=== PATIENT | male | born 1975 | race Caucasian/White ===

== ENCOUNTER 2017-09-01 11:01 | Inpatient (IN) | payer MEDICARE, OTHER ==
[2017-09-01] MEDS ORDERED: ALBUTEROL SULFATE 2.5 MG/0.5 ML VIAL.NEB IH ONE ×2 (11:27→11:29)
[2017-09-01 11:41] LABS: Hematocrit 42.5 % (42.0-52.0); Hemoglobin 14.9 gm/dL (13.5-18.0); Mean Cell Volume 90.6 fl (78-100); Mean Corpuscular Hemoglobin 31.8 pg (27-31); Mean Corpuscular Hgb Conc 35.1 g/dl (32-36); Mean Platelet Volume 10.4 fl (6.0-9.5); Neutrophil # 6.9 K/mm3 (1.3-6.0); Neutrophil % 67.3 % (42-75.0); Platelet Count 174 K/mm3 (150-450); Red Blood Count 4.69 M/mm3 (4.7-6.0); Red Cell Distribution Width 12.4 % (11.5-14.0); White Blood Count 10.2 K/mm3 (4.0-10.5)
[2017-09-01 11:56] LABS: Albumin * 3.9 gm/dl (3.4-5.0); Anion Gap 18.2 mmol/L (6.8-13.8); BUN/Creatinine Ratio 12.4 (9.0-21.6); Bilirubin, Total 0.4 mg/dL (0.0-1.1); Ca. Corrected For Albumin 8.5 mg/dL (8.4-10.2); Calcium * 8.7 mg/dL (7.9-10.9); Carbon Dioxide 17.6 mmol/L (24-32.6); Potassium 3.8 mmol/L (3.4-4.6); Total Protein 7.9 gm/dL (6.2-8.2)
--- NOTE | 2017-09-01 11:56 | ERNOTE ---
Lower Extremity HPI - Narrative Date of Service: 09/01/17 - General Lower Extremities Pain: leg: right Time Seen by Provider: 09/01/17 11:20 Source: patient Exam Limitations: no limitations - Immun/Allergies/Home Medications Immunizations: IMMUNIZATION HX Immunizations Up to Date Yes History of Influenza Vaccine Yes Allergies/Adverse Reactions: Allergies Allergy/AdvReac Type Severity Reaction Status Date / Time acetaminophen Allergy Verified 09/01/17 11:19 [From Tylenol-Codeine #3] codeine phosphate Allergy Verified 09/01/17 11:19 [From Tylenol-Codeine #3] divalproex sodium Allergy Verified 09/01/17 11:19 [From Depakote] varenicline tartrate Allergy Verified 09/01/17 11:19 [From Chantix] Home Medications: HOME MEDICATIONS Aspirin 81 mg PO DAILY 09/19/15 [Last Taken Unknown] Ibuprofen [Motrin] 800 mg PO TID PRN 09/19/15 [Last Taken Unknown] Lansoprazole [Prevacid] 30 mg PO DAILY 09/19/15 [Last Taken Unknown] Lisinopril [Zestril] 2.5 mg PO DAILY 09/19/15 [Last Taken Unknown] Lovastatin 40 mg PO BID 09/19/15 [Last Taken Unknown] QUEtiapine FUMARATE [Seroquel] 300 mg PO BID 09/19/15 [Last Taken Unknown] acetaZOLAMIDE [Acetazolamide (Diamox)] 250 mg PO BID 09/19/15 [Last Taken Unknown] metFORMIN HCL [Glucophage Xr] 500 mg PO BID 09/19/15 [Last Taken Unknown] - History of Present Illness Narrative: Pt. comes in with c/o LLE pain for a week. Pt. also has c/o SOB, Cough, rhinorrhea, sore throat, but denies any NVD, fever, alleviating factors, aggravating factors, or prehospital treatment. 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 Review of Systems - Review of Systems Constitutional: Present: chills, fatigue, malaise EYE: Present: no symptoms reported ENT: Present: nose congestion, nasal drainage, sore throat Respiratory: Present: shortness of breath, cough, orthopnea, wheezing Cardiology: Present: no symptoms reported. Absent: chest pain, palpitations, edema Gastrointestinal/Abdominal: Present: no symptoms reported Genitourinary: Present: no symptoms reported. Absent: frequency, decreased urinary output Musculoskeletal: Present: muscle pain. Absent: back pain, joint pain Skin: Present: no symptoms reported. Absent: rash, change in hair/nails Neurological: Present: no symptoms reported. Absent: anxiety, headache, dizziness/light-headedness, weakness, numbness, tingling All Other Systems: All systems neg except as marked - Patient's Past Medical History Patient History - Medical: Bipolar, Diabetes Type 2 Patient History - Cardiac/Respiratory: Deep Vein Thrombosis, Hypertension, Pulmonary Embolism Patient History - Cancer: No Hx of Cancer Patient History - Surgical Procedures: Cataracts Patient History - Other: None - Social History Living Situations: home Abuse History: No History of abuse Psych History: Hx of Anxiety Alcohol Use: none Drug Use: none - Immunizations Immunizations Up to Date: Yes History of Influenza Vaccine: Yes Physical Exam - Physical Exam General Appearance: Present: wd/wn, alert, no apparent distress Head Exam: Present: normal inspection, no evidence of injury Eye Exam: Normal inspection: bilateral, PERRL: bilateral, EOMI: bilateral Ears, Nose, Throat: Present: nasal congestion, pharyngeal erythema, pharyngeal swelling Neck: Present: normal inspection, nontender. Absent: lymphadenopathy (R), lymphadenopathy (L) Respiratory: Present: no accessory muscle use, chest nontender, rales, rhonchi, wheezing - throughout Cardiovascular/Chest: Present: no murmur, normal peripheral pulses, tachycardia Extremity Exam: Present: normal range of motion, no edema, calf tenderness Neurological Exam: Present: alert, oriented, normal mood/affect, no motor/ sensory deficits Skin Exam: Present: normal color, warm/dry. Absent: pallor, skin rash ED Progress - Date and Time Seen: Date and Time: 09/01/17 12:23 Am concerned with pt. SOB and positive DVT that he may likely have a PE so will get CT of his chest. 09/01/17 14:[address] Durand and as pt. has central vein blood clot and proximal DVT feel taht pt. needs admit for acute anticoagulation and close monitoring. - Results and Orders Patient's Lab Results:: I have reviewed the patient's lab results. - Vital Signs Patient's Vital Signs:: I have reviewed the patient's vital signs. Vital Signs: Vital Signs 09/01/17 11:11 Temperature 36.4 C L Pulse Rate 116 H Respiratory 12 Rate Blood Pressure 131/81 O2 Sat by Pulse 95 Oximetry - CT/Ultrasound CT/Ultrasound Narrative: US with DVT in prox femoral vein throughout LLE. CT chest with multiple PEs most prominent in the B main pulmonary arteries with evidence of R heart strain. - Progress/Reassessment Chief Complaint: Lower Extremity Pain/ Injury Progress:: Unchanged Departure Clinical Impression: DVT (deep venous thrombosis) Qualifiers: DVT location: lower extremity Affected thrombotic vein of extremity: femoral Chronicity: acute Laterality: left Qualified Code(s): I82.412 - Acute embolism and thrombosis of left femoral vein Pulmonary embolism Qualifiers: Pulmonary embolism type: other Chronicity: acute Acute cor pulmonale presence: with acute cor pulmonale Qualified Code(s): I26.09 - Other pulmonary embolism with acute cor pulmonale - Departure Disposition: [facility] Condition: Serious Referrals: Meri Lo ARNP [Primary Care Provider] -
[2017-09-01] MEDS ORDERED: HEPARIN SODIUM,PORCINE 5,000 UNITS/ML VIAL IV ONE (13:42)
[2017-09-01] MEDS ORDERED: HEPARIN SODIUM,PORCINE 5,000 UNITS/ML VIAL ONE (14:04)
[2017-09-01] MEDS ORDERED: HEPARIN SODIUM,PORCINE/D5W 25,000 UNITS/500 ML BAG IV ONE (14:05)
[2017-09-01 14:08] LABS: Prothrombin Time (Patient) 10.2 Seconds (9.0-11.0)
[2017-09-01 14:10] LABS: INR 1.02 INR (0.90-1.10); Partial Thrombolplastin Time 28.9 Seconds (24-32)
[2017-09-01] MEDS: HEPARIN SODIUM,PORCINE/D5W 25,000 UNITS/500 ML BAG IV PRN (14:23)
[2017-09-01] MEDS ORDERED: NICOTINE 14 MG PATC TD SCH (15:45)
[2017-09-01] MEDS: WARFARIN SODIUM 5 MG TABLET PO SCH (17:17)
[2017-09-01] MEDS: INSULIN LISPRO 100 UNITS/ML VIAL SC SCH (17:17)
[2017-09-01] MEDS ORDERED: FLU VACC QS2017-18(6MOS UP)/PF 60 MCG/0.5 ML SYRINGE IM ONE (19:00)
[2017-09-01] MEDS: acetaZOLAMIDE 250 MG TABLET PO SCH (21:25)
[2017-09-01] MEDS: ROSUVASTATIN CALCIUM 10 MG TABLET PO SCH (21:25)
[2017-09-01] MEDS: QUEtiapine FUMARATE 100 MG TABLET PO SCH (21:26)
--- NOTE | 2017-09-01 23:13 | HP ---
Chief Complaint - Chief Complaint Date of Service: 09/01/17 Time of Service: 23:04 Chief Complaint: Left leg pain, shortness of breath History of Present Illness: 42 years old male adm to the hospital with reports of left leg pain and increased shortness of breath x 3 days. PMH significant for PE, DVT, hypertension, smoker and bipolar. pt stated he noticed his left leg was getting swollen, warm to touch and increasingly painful with and without ambulating. He was using Coumadin a year ago for DVT and PE, but no longer taking. He denies chest pain, diaphoresis, palpitation, fever, chills and cough. In ER venous duplex : + DVT left leg and CTA chest _ Multiple PE bilateral lungs. He was initiated on heparin drip will continue and bridge with Coumadin.Plan of care discussed with pt he verbalized understanding and agrees. - Patient's Past Medical History Patient History - Medical: Bipolar, Diabetes Type 2 Patient History - Cardiac/Respiratory: Deep Vein Thrombosis, Hypertension, Pulmonary Embolism Patient History - Cancer: No Hx of Cancer Patient History - Surgical Procedures: Cataracts Patient History - Other: None - Family History Mother Family History - Medical: History Unknown Family History - Cardiac/Respiratory: History Unknown Family History - Cancer: History Unknown Father Family History - Medical: History Unknown Family History - Cardiac/Respiratory: History Unknown Family History - Cancer: Chemotherapy - Social History Living Situations: home Abuse History: No History of abuse Psych History: Hx of Anxiety Smoking Status: Current every day smoker Have you smoked in the past 12 months: Yes Do you dip or chew tobacco: No Patient requests Smoking Cessation Consult: No Initiate information on Smoking Cessation: Yes Alcohol Use: none Drug Use: none - Immunizations Immunizations Up to Date: Yes History of Influenza Vaccine: Yes Review Of Systems (GEN) - Review of Systems Generalized/Overall Review: Present: No Symptoms Reported EENTM: Present: No Symptoms Reported Respiratory: Present: Shortness of Breath Cardiac: Present: No Symptoms Reported Abdominal: Present: No Symptoms Reported Genitourinary: Present: No Symptoms Reported Musculoskeletal: Present: Other - left calf pain Neurological: Present: No Symptoms Reported Skin: Present: No Symptoms Reported Endocrine: Present: No Symptoms Reported Immunizations: IMMUNIZATION HX Immunizations Up to Date Yes History of Influenza Vaccine Yes Allergies/Adverse Reactions: Allergies Allergy/AdvReac Type Severity Reaction Status Date / Time acetaminophen Allergy Verified 09/01/17 15:25 [From Tylenol-Codeine #3] codeine phosphate Allergy Verified 09/01/17 15:25 [From Tylenol-Codeine #3] divalproex sodium Allergy Verified 09/01/17 15:25 [From Depakote] varenicline tartrate Allergy Verified 09/01/17 15:25 [From Chantix] Home Medications: HOME MEDICATIONS Aspirin 81 mg PO DAILY 09/19/15 [Last Taken Unknown] Ibuprofen [Motrin] 800 mg PO TID PRN 09/19/15 [Last Taken Unknown] Lansoprazole [Prevacid] 30 mg PO DAILY 09/19/15 [Last Taken Unknown] Lisinopril [Zestril] 2.5 mg PO DAILY 09/19/15 [Last Taken Unknown] Lovastatin 40 mg PO BID 09/19/15 [Last Taken Unknown] QUEtiapine FUMARATE [Seroquel] 300 mg PO BID 09/19/15 [Last Taken Unknown] acetaZOLAMIDE [Acetazolamide (Diamox)] 250 mg PO BID 09/19/15 [Last Taken Unknown] metFORMIN HCL [Glucophage Xr] 500 mg PO BID 09/19/15 [Last Taken Unknown] Exam - Exam Vital Signs: Vital Signs - Last Taken Temp 36.6 C 09/01/17 18:51 Pulse 92 09/01/17 18:51 Resp 18 09/01/17 18:51 BP 100/58 09/01/17 18:51 Pulse Ox 93 09/01/17 18:51 Constitutional: Present: Alert, Oriented x3, Cooperative, No distress ENT Exam: Present: hearing grossly normal Eye Exam: bilateral eye: normal inspection Neck: Present: full range of motion Back Exam: Present: normal inspection Respiratory: Present: normal breath sounds, no respiratory distress, decreased breath sounds Cardiovascular/Chest: Present: normal peripheral pulses, regular rate, rhythm Peripheral Pulses: dorsalis-pedis (R): 3+, dorsalis-pedis (L): 3+ Abdomen: Present: Normal bowel sounds, soft, nontender, nondistended /Rectal: Present: Exam deferred Extremity: Present: normal range of motion, no pedal edema, normal capillary refill, calf tenderness - left, lower extremity edema - left Skin Exam: Present: normal color, warm/dry, no cyanosis Neurologic: Present: oriented x 3 Appearance: Present: appropriate appearance Eye contact: Present: cooperative, good eye contact Diagnostic Studies: Abnormal Lab Results 09/01/17 Range/Units 21:43 PTT (Ari) 46.0 H D (24-32) Seconds Laboratory Results WBC 10.2 K/mm3 (4.0-10.5) 09/01/17 11:39 RBC 4.69 M/mm3 (4.7-6.0) L 09/01/17 11:39 Hgb 14.9 gm/dL (13.5-18.0) 09/01/17 11:39 Hct 42.5 % (42.0-52.0) 09/01/17 11:39 MCV 90.6 fl (78-100) 09/01/17 11:39 MCH 31.8 pg (27-31) H 09/01/17 11:39 MCHC 35.1 g/dl (32-36) 09/01/17 11:39 RDW 12.4 % (11.5-14.0) 09/01/17 11:39 Plt Count 174 K/mm3 (150-450) 09/01/17 11:39 MPV 10.4 fl (6.0-9.5) H 09/01/17 11:39 Immature Gran % (Auto) 0.60 % (0.001-0.429) H 09/01/17 11:39 Immature Gran # (Auto) 0.06 K/mm3 (0.000-0.0310) H 09/01/17 11:39 Neutrophils % 67.3 % (42-75.0) 09/01/17 11:39 Lymphocytes % 25.0 % (20-51) 09/01/17 11:39 Monocytes % 5.6 % (0.0-9) 09/01/17 11:39 Eosinophils % 0.9 % (0.0-3.0) 09/01/17 11:39 Basophils % 0.6 % (0.0-1.0) 09/01/17 11:39 Nucleated RBC % 0.0 k/mm3 (0-1) 09/01/17 11:39 Neutrophils # 6.9 K/mm3 (1.3-6.0) H 09/01/17 11:39 Lymphocytes # 2.5 k/mm3 (1.5-3.5) 09/01/17 11:39 Monocytes # 0.6 k/mm3 (0.0-1.0) 09/01/17 11:39 Eosinophils # 0.1 k/mm3 (0.0-0.7) 09/01/17 11:39 Absolute Basophils 0.1 k/mm3 (0.0-0.1) 09/01/17 11:39 PT 10.2 Seconds (9.0-11.0) 09/01/17 11:39 INR (Anticoag Therapy) 1.02 INR (0.90-1.10) 09/01/17 11:39 PTT (Ari) 46.0 Seconds (24-32) H D 09/01/17 21:43 D-Dimer 4.16 mg/L (0.19-0.49) H 09/01/17 11:39 Sodium 139 mmol/L (132-142) 09/01/17 11:39 Plasma Sodium 139 mmol/L (130-142) 09/01/17 11:39 Potassium 3.8 mmol/L (3.4-4.6) 09/01/17 11:39 Chloride 107 mmol/L (97-106) H 09/01/17 11:39 Carbon Dioxide 17.6 mmol/L (24-32.6) L 09/01/17 11:39 Anion Gap 18.2 mmol/L (6.8-13.8) H 09/01/17 11:39 BUN 11 mg/dL (6-23) 09/01/17 11:39 Creatinine 0.89 mg/dL (0.4-1.4) 09/01/17 11:39 Est GFR (Non-Af Amer) 101 mL/min (60-130) 09/01/17 11:39 BUN/Creatinine Ratio 12.4 (9.0-21.6) 09/01/17 11:39 Random Glucose 108 mg/dL (70-110) 09/01/17 11:39 Calcium 8.7 mg/dL (7.9-10.9) 09/01/17 11:39 Calcium Adj for Albumin 8.5 mg/dL (8.4-10.2) 09/01/17 11:39 Total Bilirubin 0.4 mg/dL (0.0-1.1) 09/01/17 11:39 AST 19 U/L (0-48) 09/01/17 11:39 ALT 39 U/L (19-67) 09/01/17 11:39 Alkaline Phosphatase 123 U/L (50-170) 09/01/17 11:39 Total Protein 7.9 gm/dL (6.2-8.2) 09/01/17 11:39 Albumin 3.9 gm/dl (3.4-5.0) 09/01/17 11:39 Influenza Type A Ag Negative (NEGATIVE) 09/01/17 12:10 Influenza Type B Ag Negative (NEGATIVE) 09/01/17 12:10 Group A Strep Rapid Negative (NEGATIVE) 09/01/17 12:10 Venous doppler: Extensive DVT left lower extremity venous system extending into the visualized common femoral vein. seen on CTA chest: + acute PE multiple acute PE bilateral lungs. Assessment/Plan - Narrative Narrative: DVT Pt report of leg pain, he has hx of DVT On adm D-Dimer 4.16 Venous doppler: Extensive DVT left lower extremity venous system extending into the visualized common femoral vein. Heparin drip in progress and bridge with Coumadin Continue monitoring PTT Pulmonary Embolism seen on CTA chest: + acute PE multiple acute PE bilateral lungs. pt aslo + DVT left femoral vein On adm D-Dimer 4.16, continue with heparin drip and bridge with Coumadin Diabetes- stable on adm BG 108 Accu-check AC +HS and sliding scale Consistent carb diet Hypertension- stable On adm BP 100/58 May continue with home medications Monitor VS q shift and PRN as indicated Bipolar- stable Continue with home medication Code status: Full GI ppx: pepcid VTE ppx: therapeutic Coumadin and heparin Time: 45 minutes Case discussed and managed with Dr Durand - Assessment/Plan (1) DVT (deep venous thrombosis) Problem: Acute Qualifiers: DVT location: lower extremity Affected thrombotic vein of extremity: femoral Chronicity: acute Laterality: left Qualified Code(s): I82.412 - Acute embolism and thrombosis of left femoral vein (2) Diabetes Problem: Chronic (3) Hypertension Problem: Chronic (4) Pulmonary embolism Problem: Acute Qualifiers: Pulmonary embolism type: other Chronicity: acute Acute cor pulmonale presence: with acute cor pulmonale Qualified Code(s): I26.09 - Other pulmonary embolism with acute cor pulmonale
[2017-09-02 06:32] LABS: Prothrombin Time (Patient) 11.1 Seconds (9.0-11.0)
[2017-09-02 06:38] LABS: INR 1.11 INR (0.90-1.10)
[2017-09-02] MEDS: INSULIN LISPRO 100 UNITS/ML VIAL SC SCH (07:13)
[2017-09-02] MEDS: PANTOPRAZOLE SODIUM 40 MG TABLET.EC PO SCH (07:14)
[2017-09-02] MEDS: HEPARIN SODIUM,PORCINE/D5W 25,000 UNITS/500 ML BAG IV PRN (08:19)
[2017-09-02] MEDS: acetaZOLAMIDE 250 MG TABLET PO SCH ×2 (08:46→20:21)
[2017-09-02] MEDS: ASPIRIN 81 MG TAB.CHEW PO SCH (08:46)
[2017-09-02] MEDS: LISINOPRIL 2.5 MG TABLET PO SCH (08:47)
[2017-09-02] MEDS: QUEtiapine FUMARATE 100 MG TABLET PO SCH ×2 (08:47→20:22)
[2017-09-02] MEDS: NICOTINE 14 MG PATC TD SCH (12:03)
[2017-09-02] MEDS: WARFARIN SODIUM 5 MG TABLET PO SCH (16:32)
[2017-09-02] MEDS: ROSUVASTATIN CALCIUM 10 MG TABLET PO SCH (20:21)
[2017-09-03] MEDS: HEPARIN SODIUM,PORCINE/D5W 25,000 UNITS/500 ML BAG IV PRN ×2 (01:04→19:09)
[2017-09-03] MEDS ORDERED: ACETAMINOPHEN 500 MG TABLET PO PRN (03:25)
[2017-09-03] MEDS: PANTOPRAZOLE SODIUM 40 MG TABLET.EC PO SCH (06:19)
--- NOTE | 2017-09-03 06:26 | PN ---
Subjective - Date and Time Seen Date: 09/03/17 Time: 06:22 Subjective Narrative: patient seen today very sleepy, no reports of shortness of breath, cough, chest pain, fever or palpitation. Objective - Review of Systems Generalized/Overall Review: Reports: No Symptoms Reported EENTM: Reports: No Symptoms Reported Respiratory: Reports: No Symptoms Reported Cardiac: Reports: No Symptoms Reported Abdominal: Reports: No Symptoms Reported Genitourinary Symptoms: Reports: No Symptoms Reported Musculoskeletal Complaints: Reports: No Symptoms Reported Neurological: Reports: No Symptoms Reported - Vitals Vitals: Last Vital Signs Temp 36.6 C 09/03/17 03:10 Pulse 83 09/03/17 03:10 Resp 20 09/03/17 03:10 BP 115/72 09/03/17 03:10 Pulse Ox 95 09/03/17 03:10 - Abnormal Lab Findings Abnormal Lab Findings: Abnormal Lab Results 09/02/17 Range/Units 05:30 PT 11.1 H (9.0-11.0) Seconds INR (Anticoag Therapy) 1.11 H (0.90-1.10) INR - Exam Constitutional: Present: Alert, Oriented x3, Cooperative, No distress ENT Exam: Present: hearing grossly normal Neck: Present: full range of motion Respiratory: Present: chest non-tender, normal breath sounds, no respiratory distress Cardiovascular/Chest: Present: normal peripheral pulses, regular rate, rhythm, no chest tenderness Abdomen: Present: Normal bowel sounds, soft, nontender, nondistended /Rectal: Present: Exam deferred Extremity: Present: normal range of motion, no pedal edema, calf tenderness Skin Exam: Present: normal color, warm/dry Neurologic: Present: oriented x 3 Appearance: Present: appropriate appearance Eye contact: Present: cooperative Thoughts: Present: normal thought pattern Assessment/Plan Plan Narrative: DVT On adm Pt report of leg pain, he has hx of DVT On adm D-Dimer 4.16 Venous doppler: Extensive DVT left lower extremity venous system extending into the visualized common femoral vein. Heparin drip in progress and bridge with Coumadin Continue monitoring PTT, INR still not therapeutic. Plan to DC heparin when Coumadin therapeutic. Pulmonary Embolism seen on CTA chest: + acute PE multiple acute PE bilateral lungs. pt aslo + DVT left femoral vein Plan same as #1 Diabetes- stable Accu-check AC +HS and sliding scale Consistent carb diet Hypertension- stable BP 115/72 Continue with home medications Monitor VS q shift and PRN as indicated Bipolar- stable Continue with home medication Code status: Full GI ppx: pepcid VTE ppx: therapeutic Coumadin and heparin Time: 20 minutes Case discussed and managed with Dr Durand - Problems/Diagnosis (1) DVT (deep venous thrombosis) Problem: Acute Qualifiers: DVT location: lower extremity Affected thrombotic vein of extremity: femoral Chronicity: acute Laterality: left Qualified Code(s): I82.412 - Acute embolism and thrombosis of left femoral vein (2) Diabetes Problem: Chronic (3) Hypertension Problem: Chronic (4) Pulmonary embolism Problem: Acute Qualifiers: Pulmonary embolism type: other Chronicity: acute Acute cor pulmonale presence: with acute cor pulmonale Qualified Code(s): I26.09 - Other pulmonary embolism with acute cor pulmonale
[2017-09-03 06:30] LABS: Prothrombin Time (Patient) 11.5 Seconds (9.0-11.0)
[2017-09-03 06:38] LABS: INR 1.15 INR (0.90-1.10); Partial Thrombolplastin Time 47.6 Seconds (24-32)
[2017-09-03] MEDS: QUEtiapine FUMARATE 100 MG TABLET PO SCH ×2 (08:45→20:19)
[2017-09-03] MEDS: acetaZOLAMIDE 250 MG TABLET PO SCH ×2 (08:46→20:19)
[2017-09-03] MEDS: ASPIRIN 81 MG TAB.CHEW PO SCH (08:46)
[2017-09-03] MEDS: LISINOPRIL 2.5 MG TABLET PO SCH (08:46)
[2017-09-03] MEDS: NICOTINE 14 MG PATC TD SCH (08:47)
[2017-09-03] MEDS ORDERED: LORazepam 2 MG/ML DISP.SYRIN IV PRN (12:38)
[2017-09-03] MEDS ORDERED: LORazepam 1 MG TABLET PO PRN (12:38)
[2017-09-03] MEDS ORDERED: NICOTINE 21 MG PATC TD SCH (12:45)
[2017-09-03] MEDS ORDERED: WARFARIN SODIUM 7.5 MG TABLET PO SCH (17:00)
[2017-09-03] MEDS: ROSUVASTATIN CALCIUM 10 MG TABLET PO SCH (20:18)
[2017-09-04] MEDS: PANTOPRAZOLE SODIUM 40 MG TABLET.EC PO SCH (07:23)
[2017-09-04] MEDS ORDERED: QUEtiapine FUMARATE 25 MG TABLET PO PRN (09:28)
[2017-09-04] MEDS ORDERED: LORazepam 0.5 MG TABLET PO PRN (09:28)
[2017-09-04] MEDS ORDERED: METHOCARBAMOL 500 MG TABLET PO PRN (09:28)
--- NOTE | 2017-09-04 09:29 | DS ---
(1) DVT (deep venous thrombosis) Problem: Acute Qualifiers: DVT location: lower extremity Affected thrombotic vein of extremity: femoral Chronicity: acute Laterality: left Qualified Code(s): I82.412 - Acute embolism and thrombosis of left femoral vein (2) Pulmonary embolism Problem: Acute Qualifiers: Pulmonary embolism type: other Chronicity: acute Acute cor pulmonale presence: with acute cor pulmonale Qualified Code(s): I26.09 - Other pulmonary embolism with acute cor pulmonale Description of Stay: ADMISSION DATE: 09/01/2017 DISCHARGE DATE: 09/04/2017 ADMISSION HPI by LAURENT Villanueva: 42 years old male adm to the hospital with reports of left leg pain and increased shortness of breath x 3 days. PMH significant for PE, DVT, hypertension, smoker and bipolar. pt stated he noticed his left leg was getting swollen, warm to touch and increasingly painful with and without ambulating. He was using Coumadin a year ago for DVT and PE, but no longer taking. He denies chest pain, diaphoresis, palpitation, fever, chills and cough. In ER venous duplex : + DVT left leg and CTA chest _ Multiple PE bilateral lungs. He was initiated on heparin drip will continue and bridge with Coumadin. Plan of care discussed with pt he verbalized understanding and agrees. HOSPITAL COURSE: The patient presented to the emergency department with complaints of left leg pain and increased shortness of breath. He was subsequently found to have extensive left lower extremity DVT and bilateral pulmonary emboli. The patient was started on a heparin drip for bridging plus Coumadin daily. The patient states he has a history of multiple DVTs and PEs in the past. Is unclear whether or not he has had a hypercoagulable workup completed in the past or not but we are unable to completely went this time as the patient was restarted on a heparin drip. Given the patients history of multiple VTEs, the patient will need to be on lifelong anticoagulation. After our piano case maker were available on 09/04/2017, we checked with the patients pharmacy and his insurance and he will be able to get Xarelto for a low monthly cost and thus he was switched to Xarelto prior to discharge. The patient was discharged in stable condition and instructed to follow-up with his primary care physician within one week. FOLLOW-UP APPOINTMENTS: -Follow-up with PCP, Meri Lo, within 1 week NEW OR CHANGED MEDICATIONS: -Xarelto 15mg PO BID X 21 days and then transition to 20mg daily DISCONTINUED MEDICATIONS: None RADIOLOGY REPORTS: Left lower extremity venous duplex ultrasound on 09/01/2017 showed: Extensive DVT. Exam shows thrombus throughout the left lower extremity venous system extending into the visualized common femoral. Chest CT angiogram on 09/01/2017 showed: Pulmonary arteries: Opacification of the pulmonary arterial branches adequate. The breath hold is adequate. There is streaky artifact from contrast material within the superior vena cava, which affects the adjacent pulmonary arteries. Patient has multiple central filling defects of the bilateral pulmonary arteries , affecting the distal right and left pulmonary artery, extending into the lobar and segmental branches on both sides, consistent with extensive multiple acute pulmonary emboli. The main pulmonary artery and the bifurcation areas spared. Axial images suggests relative dilation of the right ventricle, which can be a sign of right heart strain. Mild cardiac enlargement is noted. Aorta: Thoracic aorta unremarkable without acute findings. Multiple artifacts related to cardiac motion and streak artifact from contrast and the adjacent superior vena cava noted. Mediastinum: No mediastinal mass or lymphadenopathy noted. Heart: There is mild cardiomegaly, with asymmetric right ventricular dilation suggestive of right cardiac strain. There is trace amount of pericardial effusion. Lung parenchyma: The lung parenchyma demonstrates no focal consolidation. Mild bilateral dependent atelectasis noted. Central airways: The trachea and bronchi grossly patent. Pleural spaces: No pneumothorax or pleural effusions present. Bones: Bones are grossly intact. Chest wall/axillae: Bilateral gynecomastia noted. No axillary lymphadenopathy. Upper abdomen: There is hepatomegaly with decreased attenuation of the liver parenchyma suggestive of fatty liver infiltration. Somewhat distended appearance of the gallbladder without definite calcified gallstone. IMPRESSION: 1.Positive for acute pulmonary embolism. Multiple acute pulmonary emboli suggested within the bilateral lungs as discussed above. There is also CT signs of right heart strain. 2.Negative for acute thoracic aortic finding. Procedures Performed: none Discharge Disposition: Home self care Disposition: Home self-care Condition: Stable Discharge Activity: Activity as tolerated Discharge Diet: General/regular food Referrals: Meri Lo ARNP [Primary Care Provider] - Problem Oriented Discharge Instructions to Patient/Family: Pulmonary Embolism, Deep Vein Thrombosis Additional Patient Instructions (free text): Follow-up with PCPMeri, within 1 week 11/6 at 11:00. Prescriptions (Any new or edited meds): Rivaroxaban [Xarelto] 20 mg PO DAILY #30 tab Rivaroxaban [Xarelto] 15 mg PO BID #42 tablet Complete Home Medications List: Complete Home Medication List: Lisinopril [Zestril] 2.5 mg PO DAILY 09/19/15 Lovastatin 80 mg PO HS 09/19/15 QUEtiapine FUMARATE [Seroquel] 600 mg PO HS 09/19/15 acetaZOLAMIDE [Diamox] 500 mg PO BID 09/19/15 metFORMIN HCL [Glucophage Xr] 500 mg PO BID 09/19/15 Dexlansoprazole [Dexilant] 30 mg PO DAILY 09/02/17 LORazepam [Ativan] 0.5 mg PO BID PRN 09/02/17 Methocarbamol 750 mg PO TID PRN 09/02/17 QUEtiapine FUMARATE [Seroquel] 50 mg PO Q8H 09/02/17 QUEtiapine FUMARATE [Seroquel] 50 mg PO Q8H PRN 09/02/17 Rivaroxaban [Xarelto] 15 mg PO BID #42 tablet 09/04/17 Rivaroxaban [Xarelto] 20 mg PO DAILY #30 tab 09/04/17
[2017-09-04] MEDS: LISINOPRIL 2.5 MG TABLET PO SCH (09:46)
[2017-09-04] MEDS: ASPIRIN 81 MG TAB.CHEW PO SCH (09:46)
[2017-09-04] MEDS: QUEtiapine FUMARATE 100 MG TABLET PO SCH (09:46)
[2017-09-04] MEDS: acetaZOLAMIDE 250 MG TABLET PO SCH (09:46)
[2017-09-04 10:36] VITALS: BP 148/83
[2017-09-04 10:52] LABS: Anion Gap 15.7 mmol/L (6.8-13.8); BUN/Creatinine Ratio 9.6 (9.0-21.6); Calcium * 9.1 mg/dL (7.9-10.9); Carbon Dioxide 20.3 mmol/L (24-32.6)
[2017-09-04 10:57] LABS: Prothrombin Time (Patient) 13.5 Seconds (9.0-11.0)
[2017-09-04 10:58] LABS: INR 1.35 INR (0.90-1.10); Partial Thrombolplastin Time 36.1 Seconds (24-32)
[2017-09-04] MEDS ORDERED: FLU VACC QS2017-18(6MOS UP)/PF 60 MCG/0.5 ML SYRINGE IM ONE (11:00)
[2017-09-04] MEDS ORDERED: QUEtiapine FUMARATE 25 MG TABLET PO SCH (13:00)
[2017-09-05] MEDS ORDERED: PANTOPRAZOLE SODIUM 20 MG TABLET.DR PO SCH (07:00)
--- NOTE | 2017-09-05 13:03 | PN ---
Subjective - Date and Time Seen Date: 09/02/17 Time: 13:00 Subjective Narrative: Patient seen and examined at bedside. No acute issues overnight. Patient wanting to go home. Objective - Review of Systems Generalized/Overall Review: Reports: No Symptoms Reported EENTM: Reports: No Symptoms Reported Respiratory: Reports: No Symptoms Reported Cardiac: Reports: No Symptoms Reported Abdominal: Reports: No Symptoms Reported Genitourinary Symptoms: Reports: No Symptoms Reported Musculoskeletal Complaints: Reports: No Symptoms Reported Neurological: Reports: No Symptoms Reported Skin: Reports: No Symptoms Reported Endocrine: Reports: No Symptoms Reported Misc: All systems neg except as marked - Vitals Vitals: Last Vital Signs Temp 37.0 C 09/04/17 10:36 Pulse 87 09/04/17 10:36 Resp 18 09/04/17 10:36 BP 148/83 09/04/17 10:36 Pulse Ox 95 09/04/17 10:36 - Exam Constitutional: Present: Alert, Oriented x3, No distress, Obese ENT Exam: Present: hearing grossly normal, moist mucous membranes Respiratory: Present: lungs clear, normal breath sounds, no respiratory distress , no accessory muscle use Cardiovascular/Chest: Present: regular rate, rhythm, edema Abdomen: Present: soft, nontender, nondistended, hypoactive Extremity: Present: lower extremity edema Skin Exam: Present: warm/dry Neurologic: Present: alert, normal mood/affect, oriented x 3 Appearance: Present: no memory impairment Thoughts: Present: no apparent hallucination Assessment/Plan Plan Narrative: Continue heparin gtt bridging and coumadin with pharmacy to dose with goal INR 2 -3. 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 - Problems/Diagnosis (1) DVT (deep venous thrombosis) Problem: Acute Qualifiers: DVT location: lower extremity Affected thrombotic vein of extremity: femoral Chronicity: acute Laterality: left Qualified Code(s): I82.412 - Acute embolism and thrombosis of left femoral vein (2) Pulmonary embolism Problem: Acute Qualifiers: Pulmonary embolism type: other Chronicity: acute Acute cor pulmonale presence: with acute cor pulmonale Qualified Code(s): I26.09 - Other pulmonary embolism with acute cor pulmonale
== END 2017-09-04 10:48 | disposition home or self-care (01) | DRG 175 ==
LOC: ER 11:01 → MS 14:39 → OBSVTOIN 14:48
PROVIDERS: ADMIT Internal Medicine; ATTEND Internal Medicine
DX: I26.09 Other pulmonary embolism with acute cor pulmonale (principal); I82.402 Acute embolism and thrombosis of unspecified deep veins of left lower extremity; E11.9 Type 2 diabetes mellitus without complications; I10 Essential (primary) hypertension; F31.9 Bipolar disorder, unspecified; F17.210 Nicotine dependence, cigarettes, uncomplicated; Z79.84 Long term (current) use of oral hypoglycemic drugs; Z79.82 Long term (current) use of aspirin; Z23 Encounter for immunization
CPT/HCPCS: 36415; 71275; 80048; 80053; 85025; 85379; 85610; 85730; 87081; 87400; 87430; 90686; 93971; 94640; 96365; 96366; 96375; 99285; G0008

== ENCOUNTER 2017-09-07 18:13 | Emergency (ER) | payer MEDICARE, OTHER ==
--- NOTE | 2017-09-07 18:51 | ERNOTE ---
Abdominal HPI - Narrative Date of Service: 09/07/17 - General Chief Complaint: Abdominal Pain Time Seen by Provider: 09/07/17 18:34 Source: patient Exam Limitations: no limitations - Immun/Allergies/Home Medications Immunizatons: IMMUNIZATION HX Immunizations Up to Date Yes History of Influenza Vaccine Yes Hx Pneumococcal Vaccination No Allergies/Adverse Reactions: Allergies acetaminophen [From Tylenol-Codeine #3] Allergy (Verified 09/01/17 15:25) codeine phosphate [From Tylenol-Codeine #3] Allergy (Verified 09/01/17 15:25) divalproex sodium [From Depakote] Allergy (Verified 09/01/17 15:25) varenicline tartrate [From Chantix] Allergy (Verified 09/01/17 15:25) Home Medications: HOME MEDICATIONS Lisinopril [Zestril] 2.5 mg PO DAILY 09/19/15 [Last Taken Unknown] Lovastatin 80 mg PO HS 09/19/15 [Last Taken Unknown] acetaZOLAMIDE [Diamox] 500 mg PO BID 09/19/15 [Last Taken Unknown] metFORMIN HCL [Glucophage Xr] 500 mg PO BID 09/19/15 [Last Taken Unknown] Dexlansoprazole [Dexilant] 30 mg PO DAILY 09/02/17 [Last Taken Unknown] LORazepam [Ativan] 0.5 mg PO BID PRN 09/02/17 [Last Taken Unknown] Methocarbamol 750 mg PO TID PRN 09/02/17 [Last Taken Unknown] QUEtiapine FUMARATE [Seroquel] 50 mg PO Q8H PRN 09/02/17 [Last Taken Unknown] QUEtiapine FUMARATE [Seroquel] 100 mg PO HS 09/02/17 [Last Taken Unknown] Rivaroxaban [Xarelto] 15 mg PO BID #42 tablet 09/04/17 [Last Taken Unknown] - History of Present Illness Narrative: Patient presents for having one bout of black stools. He denies any abdominal pain nausea or vomiting whatsoever. He states that he was belching so he took a large amount of Pepto-Bismol this morning. He has no history of ulcers. Review of Systems - Review of Systems Constitutional: Present: no symptoms reported, decreased activity level ENT: Present: no symptoms reported Respiratory: Present: no symptoms reported Cardiology: Present: no symptoms reported Gastrointestinal/Abdominal: Present: See HPI. Absent: nausea, vomiting, diarrhea, abdominal pain Genitourinary: Present: no symptoms reported Musculoskeletal: Present: no symptoms reported Skin: Present: no symptoms reported Neurological: Present: no symptoms reported - Patient's Past Medical History Patient History - Medical: Bipolar, Diabetes Type 2 Patient History - Cardiac/Respiratory: Deep Vein Thrombosis, Hypertension, Pulmonary Embolism Patient History - Cancer: No Hx of Cancer Patient History - Surgical Procedures: Cataracts Patient History - Other: None - Family History Mother Family History - Medical: History Unknown Family History - Cardiac/Respiratory: History Unknown Family History - Cancer: History Unknown Father Family History - Medical: History Unknown Family History - Cardiac/Respiratory: History Unknown Family History - Cancer: Chemotherapy - Social History Abuse History: No History of abuse Psych History: Hx of Anxiety Smoking Status: Current every day smoker Patient requests Smoking Cessation Consult: No Initiate information on Smoking Cessation: No - Immunizations Immunizations Up to Date: Yes Hx Pneumococcal Vaccination: No History of Influenza Vaccine: Yes Physical Exam - Physical Exam General Appearance: Present: wd/wn, alert, no apparent distress - patient is morbidly obese laughing smiling happy he does not appear pale, other Head Exam: Present: normal inspection Ears, Nose, Throat: Present: normal ENT inspection Neck: Present: normal inspection Respiratory: Present: no respiratory distress, normal breath sounds, no accessory muscle use, chest nontender, lungs clear Cardiovascular/Chest: Present: regular rate, rhythm, no murmur, normal peripheral pulses Gastrointestinal/Abdominal: Present: normal bowel sounds, nontender, nondistended, soft, no organomegaly. Absent: tenderness ED Progress - Results and Orders Patient's Lab Results:: I have reviewed the patient's lab results. - Vital Signs Patient's Vital Signs:: I have reviewed the patient's vital signs. Vital Signs: Vital Signs 09/07/17 18:28 Temperature 35.9 C L Pulse Rate 102 H Respiratory 22 H Rate Blood Pressure 128/92 O2 Sat by Pulse 97 Oximetry - Progress/Reassessment Chief Complaint: Abdominal Pain Plan - Plan Plan: This patient is not tachycardic and he is orthostatic normal his blood pressure does not drop significantly when he stands up he does not feel dizzy and patient 's hemoglobin is 14. I believe his one episode of black stools is due to having taken Pepto-Bismol this morning. During his stay he has not had another bowel movement that is black and he has absolutely no rectal or abdominal pain. He is to follow-up with his primary care doctor or come back to us if he continues to have black stools despite not taking Pepto-Bismol. Departure Clinical Impression: Feared condition not demonstrated - Departure Disposition: Home self-care Condition: Good Additional Instructions: Please stop taking her Pepto-Bismol and if you still have black stools follow- up here or with her primary care doctor and return to our ER immediately Referrals: Meri Lo ARNP [Primary Care Provider] -
[2017-09-07 19:24] LABS: Hematocrit 42.7 % (42.0-52.0); Hemoglobin 14.7 gm/dL (13.5-18.0); Mean Corpuscular Hemoglobin 31.3 pg (27-31); Mean Corpuscular Hgb Conc 34.4 g/dl (32-36); Mean Platelet Volume 10.9 fl (6.0-9.5); Neutrophil # 4.8 K/mm3 (1.3-6.0); Neutrophil % 53.5 % (42-75.0); Platelet Count 246 K/mm3 (150-450); Red Blood Count 4.69 M/mm3 (4.7-6.0); Red Cell Distribution Width 12.4 % (11.5-14.0); White Blood Count 8.9 K/mm3 (4.0-10.5)
[2017-09-07 19:48] VITALS: BP 130/85
== END 2017-09-07 19:44 | disposition home or self-care (01) ==
LOC: ER 18:13
DX: Z03.89 Encounter for observation for other suspected diseases and conditions ruled out (principal); E11.9 Type 2 diabetes mellitus without complications; I10 Essential (primary) hypertension; F31.70 Bipolar disorder, currently in remission, most recent episode unspecified; F17.200 Nicotine dependence, unspecified, uncomplicated